=== PATIENT | male | born 1995 | race Asian ===

== ENCOUNTER 2018-01-24 19:47 | Emergency (ER) | payer OTHER ==
[~2018-01-24] VITALS: Ht 175.3 cm; Wt 57.6 kg
[2018-01-24 20:02] VITALS: Ht 175.3 cm; Wt 57.6 kg
[2018-01-24 21:23] VITALS: BP 115/58
== END 2018-01-24 21:23 | disposition home or self-care (01) ==
LOC: ED 19:47
DX: S93.401A Sprain of unspecified ligament of right ankle, initial encounter (principal); Z88.0 Allergy status to penicillin; X50.1XXA Overexertion from prolonged static or awkward postures, initial encounter; Y93.89 Activity, other specified; Y92.89 Other specified places as the place of occurrence of the external cause; Y99.8 Other external cause status

== ENCOUNTER 2018-01-25 15:09 | Emergency (ER) | payer OTHER ==
[~2018-01-25] VITALS: Ht 175.3 cm; Wt 57.6 kg
[2018-01-25 15:14] VITALS: Ht 175.3 cm; Wt 57.6 kg
[2018-01-25 16:30] VITALS: BP 103/65
== END 2018-01-25 16:30 | disposition home or self-care (01) ==
LOC: ED 15:09
DX: M79.671 Pain in right foot (principal); Z88.0 Allergy status to penicillin; Z90.89 Acquired absence of other organs